=== PATIENT | female | born 2000 | race Hispanic/Latino ===

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

== ENCOUNTER 2018-01-24 19:28 | Emergency (ER) | payer SELFPAY ==
[~2018-01-24] VITALS: Ht 162.6 cm; Wt 70.0 kg
[~2018-01-24 19:28] MED LIST: PERCOCET 5/325M1 TAB PO
[2018-01-24 23:15] VITALS: BP 119/73
== END 2018-01-24 23:17 | disposition short-term general hospital (02) | DRG 914 ==
LOC: ED 19:28
DX: S81.022A Laceration with foreign body, left knee, initial encounter (principal); S40.811A Abrasion of right upper arm, initial encounter; S50.812A Abrasion of left forearm, initial encounter; V28.4XXA Motorcycle driver injured in noncollision transport accident in traffic accident, initial encounter